=== PATIENT | female | born 1970 | race Caucasian/White ===

== ENCOUNTER → 2017-12-06 | Outpatient (CLI) | payer OTHER | END | disposition home or self-care (01) | LOC: LAB 11:17 | DX: R68.83 Chills (without fever) (principal) ==

== ENCOUNTER 2022-09-15 13:51 | Emergency (ER) | payer OTHER ==
[~2022-09-15] VITALS: Ht 154.9 cm; Wt 77.1 kg
[2022-09-15 14:46] LABS: BASO # 0.1 10*3/uL (0.0-0.1); BASO % 0.9 % (0.0-1.0); EOS # 0.9 10*3/uL (0.0-0.4); EOS % 8.4 % (1.0-4.0); HEMATOCRIT 43.5 % (37.0-47.0); LYMPH # 2.8 10*3/uL (1.3-4.4); MEAN CELL VOLUME 92.9 fl (81.0-99.0); MEAN CORPUSCULAR HGB 29.5 pg (27.0-31.0); MEAN CORPUSCULAR HGB CONC 31.7 g/dl (33.0-37.0); MEAN PLATELET VOLUME 9.6 fl (9.6-12.3); MONO # 0.8 10*3/uL (0.1-1.0); MONO % 7.7 % (3.0-9.0); NEUT # 5.7 10*3/uL (2.3-7.9); NEUT % 55.4 % (47.0-73.0); PLATELET COUNT AUTOMATED 321 10*3/uL (130-400); RED BLOOD COUNT 4.68 10*6/uL (4.10-5.10); RED CELL DISTRI WIDTH 13.3 % (0-14.5); WHITE BLOOD COUNT 10.4 10*3/uL (4.8-10.8)
[2022-09-15 15:02] LABS: ALKALINE PHOSPHATASE 53 U/L (45-117); BUN 19 mg/dl (7-24); CHLORIDE 107 mmol/L (98-107); CREATININE 0.92 mg/dL (0.55-1.02); POTASSIUM 3.6 mmol/L (3.5-5.1); SGOT/AST 22 IU/L (3-35); SGPT/ALT 24 U/L (12-78); SODIUM 139 mmol/L (136-145); TOTAL PROTEIN 7.6 gm/dL (6.4-8.2)
[2022-09-15] MEDS ORDERED: PREDNISONE20 M1 PO (17:38)
== END 2022-09-15 17:42 | disposition home or self-care (01) ==
LOC: ED 13:51
PROVIDERS: Physician Assistant
DX: J40 Bronchitis, not specified as acute or chronic (principal); Z88.1 Allergy status to other antibiotic agents

== ENCOUNTER → 2022-09-18 | Outpatient (CLI) | payer OTHER ==
[~2022-09-18] MED LIST: PREDNISONE20 M1 PO
== END | disposition home or self-care (01) ==
LOC: MRI 12:13
PROVIDERS: ATTEND Specialist
DX: H81.319 Aural vertigo, unspecified ear (principal); H90.5 Unspecified sensorineural hearing loss; J32.0 Chronic maxillary sinusitis; J32.9 Chronic sinusitis, unspecified

== ENCOUNTER 2023-05-28 14:58 | Emergency (ER) | payer OTHER ==
[~2023-05-28] VITALS: Ht 154.9 cm; Wt 69.9 kg
[2023-05-28 15:22] LABS: BASO # 0.1 10*3/uL (0.0-0.1); BASO % 0.5 % (0.0-1.0); EOS # 0.4 10*3/uL (0.0-0.4); EOS % 3.2 % (1.0-4.0); HEMATOCRIT 42.6 % (37.0-47.0); LYMPH # 2.5 10*3/uL (1.3-4.4); LYMPH % 21.3 % (27.0-41.0); MEAN CELL VOLUME 88.8 fl (81.0-99.0); MEAN CORPUSCULAR HGB 29.2 pg (27.0-31.0); MEAN CORPUSCULAR HGB CONC 32.9 g/dl (33.0-37.0); MEAN PLATELET VOLUME 9.8 fl (9.6-12.3); MONO # 0.8 10*3/uL (0.1-1.0); MONO % 6.9 % (3.0-9.0); NEUT # 7.9 10*3/uL (2.3-7.9); NEUT % 67.7 % (47.0-73.0); PLATELET COUNT AUTOMATED 393 10*3/uL (130-400); RED CELL DISTRI WIDTH 13.4 % (0-14.5); WHITE BLOOD COUNT 11.7 10*3/uL (4.8-10.8)
[2023-05-28 15:48] LABS: ALKALINE PHOSPHATASE 45 U/L (46-116); BUN 19 mg/dl (9-23); CHLORIDE 102 mmol/L (98-107); LIPASE 47 U/L (12-53); POTASSIUM 3.6 mmol/L (3.4-5.1); SGPT/ALT 18 U/L (10-49); TOTAL PROTEIN 8.7 gm/dL (6.0-8.0)
[2023-05-28 16:16] LABS: BILIRUBIN Negative (Negative); BLOOD 3+ (Negative); CLARITY Turbid (Clear); COLOR Yellow (Yellow); GLUCOSE Negative (Negative); KETONE Negative (Negative); LEUKO ESTERASE 1+ (Negative); NITRITE Negative (Negative); PH 7.5 (4.5-8.0); SPECIFIC GRAVITY 1.015 (1.001-1.030)
[2023-05-28 16:32] LABS: RBC TNTC rbc/hpf (0-2); WBC TNTC wbc/hpf (0-5)
[2023-05-28 16:33] LABS: BACTERIA 2+
[2023-05-28] MEDS ORDERED: AMOX-CLAV 875-1 EACH PO (18:30)
== END 2023-05-28 20:35 | disposition short-term general hospital (02) ==
LOC: ED 14:58
PROVIDERS: Nurse Practitioner Family
DX: N13.2 Hydronephrosis with renal and ureteral calculous obstruction (principal); K57.32 Diverticulitis of large intestine without perforation or abscess without bleeding; Z88.1 Allergy status to other antibiotic agents

== ENCOUNTER → 2023-06-22 | Outpatient (CLI) | payer OTHER ==
[~2023-06-22] MED LIST changes: +AMOX-CLAV 875-1 EACH PO
== END | disposition home or self-care (01) ==
LOC: US 10:00
PROVIDERS: ATTEND Urology
DX: N20.0 Calculus of kidney (principal)

== ENCOUNTER 2024-10-28 17:04 | Emergency (ER) | payer OTHER ==
[~2024-10-28] VITALS: Ht 154.9 cm; Wt 63.5 kg
[2024-10-28] MEDS ORDERED: SODIUM CHLORIDE 0.9% 1,000 ML IV ONE (18:15)
[2024-10-28] MEDS ORDERED: Ketorolac Tromethamine 15 MG/ML VIAL IV ONE (18:20)
[2024-10-28] MEDS ORDERED: Ondansetron Hydrochloride 4 MG/2 ML VIAL IV ONE ×2 (18:20→20:40)
[2024-10-28 18:34] LABS: BASO # 0.1 10*3/uL (0.0-0.1); BASO % 0.5 % (0.0-1.0); EOS # 0.3 10*3/uL (0.0-0.4); EOS % 2.6 % (1.0-4.0); HEMATOCRIT 39.9 % (37.0-47.0); MEAN CELL VOLUME 92.4 fl (81.0-99.0); MEAN CORPUSCULAR HGB 29.9 pg (27.0-31.0); MEAN CORPUSCULAR HGB CONC 32.3 g/dl (33.0-37.0); MEAN PLATELET VOLUME 9.4 fl (9.6-12.3); MONO # 0.6 10*3/uL (0.1-1.0); MONO % 6.4 % (3.0-9.0); NEUT # 6.8 10*3/uL (2.3-7.9); NEUT % 68.7 % (47.0-73.0); PLATELET COUNT AUTOMATED 355 10*3/uL (130-400); RED BLOOD COUNT 4.32 10*6/uL (4.10-5.10); RED CELL DISTRI WIDTH 12.5 % (0-14.5); WHITE BLOOD COUNT 9.9 10*3/uL (4.8-10.8)
[2024-10-28 18:54] LABS: BUN 14 mg/dl (9-23); CHLORIDE 107 mmol/L (98-107); POTASSIUM 3.8 mmol/L (3.4-5.1)
[2024-10-28] MEDS ORDERED: POTASSIUM CITR15 ME1 PO (19:03)
[2024-10-28] MEDS ORDERED: OZEMPIC0.25 MG/03 SQ (19:03)
[2024-10-28] MEDS ORDERED: CHLORTHALIDONE25 MG PO (19:03)
[2024-10-28] MEDS ORDERED: ROSUVASTATIN CA10 MG PO (19:04)
[2024-10-28] MEDS ORDERED: METOPROLOL SUCC25 M2 PO (19:04)
[2024-10-28] MEDS ORDERED: FENOFIBRATE145 M1 PO (19:04)
[2024-10-28] MEDS ORDERED: BIJUVA 1 MG-101 EACH PO (19:04)
[2024-10-28] MEDS ORDERED: LORAZEPAM0.5 M1 PO (19:05)
[2024-10-28] MEDS ORDERED: BUSPIRONE HCL7.5 MG PO (19:05)
[2024-10-28] MEDS ORDERED: BUPROPION XL300 MG PO (19:05)
[2024-10-28] MEDS ORDERED: TRAZODONE50 MG PO (19:06)
[2024-10-28 19:12] LABS: BILIRUBIN Negative (Negative); BLOOD Negative (Negative); CLARITY Clear (Clear); COLOR Yellow (Yellow); GLUCOSE Negative (Negative); KETONE Negative (Negative); LEUKO ESTERASE Negative (Negative); NITRITE Negative (Negative); UROBILINOGEN 0.2 E.U./dl (0.0-1.0)
[2024-10-28 19:31] LABS: BACTERIA TRACE; WBC 0-2 wbc/hpf (0-5)
[2024-10-28] MEDS ORDERED: TRAMADOL HCL50 MG PO (20:44)
[2024-10-28] MEDS ORDERED: FLOMAX0.4 MG PO (20:44)
[2024-10-28] MEDS ORDERED: Ondansetron4 MG PO (20:44)
== END 2024-10-28 20:54 | disposition home or self-care (01) ==
LOC: ED 17:04
PROVIDERS: Emergency Medicine
DX: N20.0 Calculus of kidney (principal); R11.2 Nausea with vomiting, unspecified; Z88.1 Allergy status to other antibiotic agents; Z90.49 Acquired absence of other specified parts of digestive tract

== ENCOUNTER → 2025-01-12 | Outpatient (CLI) | payer OTHER ==
[~2025-01-12] MED LIST changes: +BIJUVA 1 MG-101 EACH PO; +BUPROPION XL300 MG PO; +BUSPIRONE HCL7.5 MG PO; +CHLORTHALIDONE25 MG PO; +FENOFIBRATE145 M1 PO; +FLOMAX0.4 MG PO; +LORAZEPAM0.5 M1 PO; +METOPROLOL SUCC25 M2 PO; +OZEMPIC0.25 MG/03 SQ; +Ondansetron4 MG PO; +POTASSIUM CITR15 ME1 PO; +ROSUVASTATIN CA10 MG PO; +TRAMADOL HCL50 MG PO; +TRAZODONE50 MG PO
== END | disposition home or self-care (01) ==
LOC: CT 01-01 08:00
PROVIDERS: ATTEND Urology
DX: N20.0 Calculus of kidney (principal); K57.90 Diverticulosis of intestine, part unspecified, without perforation or abscess without bleeding; Z90.49 Acquired absence of other specified parts of digestive tract